=== PATIENT | female | born 1960 | race Caucasian/White ===

== ENCOUNTER 2017-11-19 06:37 | Day surgery (SDC) | payer OTHER ==
[2017-11-19] MEDS ORDERED: SUCCINYLCHOLINE CHLORIDE 100 MG/5 ML SYG IV (07:00)
[2017-11-19] MEDS ORDERED: CEFAZOLIN 1 GM INJ ×2 (07:00→08:36)
[2017-11-19] MEDS ORDERED: ONDANSETRON 4 MG INJ (08:36)
[2017-11-19] MEDS ORDERED: ROCURONIUM 50 MG INJ (08:36)
[2017-11-19] MEDS ORDERED: GLYCOPYRROLATE 0.4 MG INJ (08:36)
[2017-11-19] MEDS ORDERED: MIDAZOLAM 1 MG/ML 2 ML INJ (08:36)
[2017-11-19] MEDS ORDERED: PROPOFOL 20 ML (08:36)
[2017-11-19] MEDS ORDERED: DEXAMETHASONE 4 MG/ML 1 ML INJ (08:36)
[2017-11-19] MEDS ORDERED: FENTAnyl 50 MCG/ML VIAL (08:36)
[2017-11-19] MEDS ORDERED: NEOSTIGMINE 3 MG/3 ML SYRINGE (08:36)
[2017-11-19] MEDS ORDERED: ROPIVACAINE 0.5 % 30 ML VIAL (08:37)
[2017-11-19] MEDS ORDERED: BUPIVACAINE 0.25% (MPF) 30 ML INJ (09:02)
[2017-11-19] MEDS ORDERED: FENTAnyl 50 MCG/ML VIAL IV ×3 (10:00)
[2017-11-19] MEDS ORDERED: ONDANSETRON 4 MG INJ IV (10:00)
[2017-11-19] MEDS ORDERED: EPHEDrine SULFATE 50 MG/5 ML SYG IV (10:00)
[2017-11-19] MEDS ORDERED: OXYCODONE/ACETAMINOPHEN (5/325) TAB PO ×2 (10:00)
[2017-11-19] MEDS ORDERED: hydrALAzine 20 MG INJ IV (10:00)
[2017-11-19] MEDS ORDERED: ALBUTEROL 0.083% (NEB) 2.5 MG/3 ML AMP HHN (10:00)
[2017-11-19] MEDS ORDERED: HYDROmorphONE 1 MG/5 ML IV SYRINGE IV ×2 (10:00)
[2017-11-19] MEDS ORDERED: TRIMETHOBENZAMIDE 100 MG/ML VIAL IM (10:00)
[2017-11-19] MEDS ORDERED: MIDAZOLAM 1 MG/ML 2 ML INJ IV (10:00)
[2017-11-19] MEDS ORDERED: IPRATROPIUM (NEB) 0.5 MG/2.5 ML AMP HHN (10:00)
[2017-11-19] MEDS ORDERED: MEPERIDINE 25 MG INJ IV (10:00)
[2017-11-19] MEDS ORDERED: DIPHENHYDRAMINE 50 MG INJ IV (10:00)
[2017-11-19] MEDS ORDERED: SUGAMMADEX SODIUM 200 MG/2 ML VIAL IV (10:18)
[2017-11-19] MEDS ORDERED: KETOROLAC 30 MG INJ (10:27)
[2017-11-19] MEDS ORDERED: HYDROCODONE/APAP (5/325) TAB PO (10:30)
[2017-11-19] MEDS: LABETALOL HCL 20MG INJ IV (10:52)
[2017-11-19] MEDS: HYDROmorphONE 1 MG/5 ML IV SYRINGE IV ×2 (10:53→11:31)
== END 2017-11-19 12:26 | disposition home or self-care (01) ==
LOC: SDS 06:37
DX: K80.20 Calculus of gallbladder without cholecystitis without obstruction (principal); I10 Essential (primary) hypertension; E11.9 Type 2 diabetes mellitus without complications
CPT/HCPCS: 47562; 82962; 88304